=== PATIENT | female | born 1995 | race Caucasian/White ===

== ENCOUNTER → 2018-10-01 | Outpatient (CLI) | payer BC ==
[~2018-10-01] MED LIST: DIPH0.5S2 IM; FERR324T23 PO; PNV1TAB.3; RHO(150015 IM
[2018-10-01 13:50] LABS: PLATELET COUNT, AUTOMATED 215 K/uL (150-450)
--- NOTE | 2018-10-01 15:03 | RADIOLOGY IMAGING REPORT ---
FACILITY: [facility] - [place] PATIENT NAME: Leonid Mohr : 1995 MR: [id number] V: [id number] EXAM DATE: ORDERING PHYSICIAN: GUMARO LOPEZ TECHNOLOGIST: Location: [facility] - [place] Patient: Leonid Mohr : 1995 Visit/Account:[id number] Date of Sevice: 10/01/2018 ADDENDUM #1 ADDENDUM: Results were called to GUMARO LOPEZ at 10/01/2018 3:04 PM. Report Dictated By: Jeremy Cooley MD at 10/01/2018 3:04 PM Report E-Signed By: Jeremy Cooley MD at 10/01/2018 3:04 PM ORIGINAL REPORT Obstetric ultrasound HISTORY: Right upper quadrant pain. . COMPARISON: None available. FINDINGS: Standard transabdominal obstetric ultrasound. Umbilical artery Doppler evaluation was also performed. Uterus, cervix, and adnexa: Negative. Placenta: Unremarkable posterior placenta. No placenta previa. anatomic survey: anatomic survey was not performed. Parameters: Biparietal diameter: 6.9 cm, 28 weeks, 0 days, 63rd percentile Head circumference: 26 cm, 28 weeks, 3 days, 68th percentile Abdominal circumference: 24 cm, 28 weeks, 2 days, 76th percentile Femur length: 5 cm, 27 weeks, 1 day, 32nd percentile Composite gestational age based on Hadlock criteria is 28 weeks, 0 days for an estimated delivery morenita e of 12/24/2018. Estimated weight is 1131 g which is at the 66th percentile based on LMP. heart rate: 147 bpm. Amniotic fluid index (AHMET): 20.4 cm. Largest pocket: 5.4 cm. Grayscale, duplex and color Doppler interrogation of the umbilical arteries was performed. Umbilical artery #1: Normal systolic upstroke without diastolic notching. RI = 0.69 (normal less than or equal 0.7) S/D = 3.2 (normal 24-27 weeks less than or equal 4.0) (normal > 28 weeks less than or equal 3.0) Umbilical artery #2: Normal systolic upstroke without diastolic notching. RI = 0.68 (normal less than or equal 0.7) S/D = 3.2 (normal 24-27 weeks less than or equal 4.0) (normal > 28 weeks less than or equal 3.0) IMPRESSION: Live intrauterine with no emergent findings. Report Dictated By: Jeremy Cooley MD at 10/01/2018 2:25 PM Report E-Signed By: Jeremy Cooley MD at 10/01/2018 2:54 PM WSN:[id number]
== END ==
LOC: LAB 11:23
PROVIDERS: ATTEND Obstetrics & Gynecology
DX: Z34.92 Encounter for supervision of normal pregnancy, unspecified, second trimester (principal); Z34.82 Encounter for supervision of other normal pregnancy, second trimester; R10.11 Right upper quadrant pain
CPT/HCPCS: 36415; 76815; 76820; 82040; 82247; 82310; 82374; 82435; 82565; 82947; 82950; 84075; 84132; 84155; 84295; 84450; 84460; 84520; 85025

== ENCOUNTER → 2018-10-01 | Outpatient (CLI) | payer BC ==
--- NOTE | 2018-10-01 15:03 | RADIOLOGY IMAGING REPORT ---
FACILITY: [facility] - [place] PATIENT NAME: Leonid Mohr : 1995 MR: [id number] V: [id number] EXAM DATE: ORDERING PHYSICIAN: GUMARO LOPEZ TECHNOLOGIST: Location: [facility] - [place] Patient: Leonid Mohr : 1995 Visit/Account:[id number] Date of Sevice: 10/01/2018 ADDENDUM #1 Results were called to GUMARO LOPEZ at 10/01/2018 3:04 PM. Report Dictated By: Jeremy Cooley MD at 10/01/2018 3:03 PM Report E-Signed By: Jeremy Cooley MD at 10/01/2018 3:04 PM ORIGINAL REPORT Focused right upper quadrant ultrasound HISTORY: Right upper quadrant pain. COMPARISON: None available. Findings: Standard right upper quadrant abdominal ultrasound is performed. Pancreas: Visualized portions of the pancreas are unremarkable. Liver: 10 x 9 x 8 mm hyperechoic lesion in the right hepatic lobe. Otherwise negative. Gallbladder and biliary system: No gallbladder stone or sludge. No wall thickening, pericholecystic f luid, or sonographic Duncan's. The common bile duct is not dilated. Aorta and IVC: The visualized aorta and IVC are patent. Kidneys: The right kidney measures 10.7 x 5.4 x 5.0 cm. Mild right hydronephrosis. Ascites: None. IMPRESSION: 1. Mild right hydronephrosis, probably related to the gravid uterus. 2. 10 x 9 x 8 mm hyperechoic lesion in the right hepatic lobe. This is most likely a benign hemangiom a if there is no history of malignancy or chronic liver disease. Report Dictated By: Jeremy Cooley MD at 10/01/2018 2:21 PM Report E-Signed By: Jeremy Cooley MD at 10/01/2018 2:54 PM WSN:[id number]
== END ==
LOC: US 12:37
PROVIDERS: ATTEND Obstetrics & Gynecology
DX: Z34.82 Encounter for supervision of other normal pregnancy, second trimester (principal); R10.11 Right upper quadrant pain
CPT/HCPCS: 76705